=== PATIENT | male | born 1940 | race Caucasian/White ===

== ENCOUNTER → 2017-08-29 | Outpatient (CLI) | payer MEDICARE ==
[~2017-08-29] MED LIST: ALBUTEROL2 PUFFS/17 IN; ALBUTEROL2.5 MG/NEB INH; AMIODARONE200 MG PO; ASPIR-LOW81 MG PO; AUGMENTIN 875-1 EACH PO; AZITHROMYCIN250 MG PO; BISOPROLOL 5MG T5 MG PO; CHEWABLE ASPIRI81 MG PO; CILOSTAZOL100 M1 PO; CILOSTAZOL100 MG PO; CLOPIDOGREL75 MG PO; GLIPIZIDE 5MG TA5 MG PO; IPRATROPIUM 2.2.5 ML INH; LASIX20 MG PO; LIPITOR80 MG PO; LISINOPRIL 5MG T5 MG PO; LISINOPRIL2.5 MG PO; LORTAB 500 MG-71 TAB PO; MAGMTHWSH PO; MEDROL 4MG. DOSE4 MG PO; MELOXICAM15 MG PO; METFORMIN1000 MG PO; MICRO-K 10 MEQ10 MEQ PO; MOBIC15 MG PO; OMNICEF 300 MG300 MG PO; PREDNISONE 20MG20 MG PO; SINGULAIR10 MG PO; TAMSULOSIN HYD0.4 MG PO; ZITHROMAX Z-PA250 M2 PO
== END ==
LOC: LAB 13:24
DX: E55.9 Vitamin D deficiency, unspecified (principal); R53.83 Other fatigue; Z79.899 Other long term (current) drug therapy

== ENCOUNTER → 2017-09-12 | Outpatient (CLI) | payer MEDICARE, MEDICAID ==
--- NOTE | 2017-09-12 15:39 | RADIOLOGY REPORT PS360 ---
HUMERUS-RT HISTORY: RT SHOULDER PAIN ORDERING PHYSICIAN: Trey Aguayo MD PATIENT AGE: 76 years COMPARISON: None FINDINGS: There are severe osteoarthritic changes of the acromioclavicular joint with subacromial stenosis. No fracture or dislocation. IMPRESSION: Osteoarthritis, no acute finding
--- NOTE | 2017-09-12 15:40 | RADIOLOGY REPORT PS360 ---
[id number] VIEWS HISTORY: RT SHOULDER PAIN ORDERING PHYSICIAN: Trey Aguayo MD PATIENT AGE: 76 years COMPARISON: None FINDINGS: Osteoarthritis of the acromioclavicular joint. Subacromial stenosis with some cortical irregularity of the greater tuberosity which may be seen with chronic rotator cuff disease. No acute fracture or dislocation. IMPRESSION: Osteoarthritis with subacromial stenosis
== END ==
LOC: RAD 14:35
DX: S46.901D Unspecified injury of unspecified muscle, fascia and tendon at shoulder and upper arm level, right arm, subsequent encounter (principal)

== ENCOUNTER → 2017-10-06 | Outpatient (CLI) | payer MEDICARE ==
--- NOTE | 2017-10-06 14:22 | RADIOLOGY REPORT PS360 ---
KNEE-4 OR 5 VIEWS-LT HISTORY: BILAT KNEE PAIN ORDERING PHYSICIAN: CAMILO MENDIOLA MD PATIENT AGE: 77 years COMPARISON: None FINDINGS: Weightbearing views are performed. There are severe osteoarthritic changes of the lateral compartment with loss of joint space and mild lateral subluxation of the tibia by approximately 6 mm. Chondrocalcinosis involving the medial compartment with moderate osteoarthritic change of the medial compartment and patellofemoral joint. There is diffuse vascular calcification. No acute fracture or dislocation. IMPRESSION: Severe osteoarthritis of the lateral compartment and moderate osteoarthritis of the medial compartment and patellofemoral joint
--- NOTE | 2017-10-07 09:16 | RADIOLOGY REPORT PS360 ---
KNEE-4 OR 5 VIEWS-RT HISTORY: BILAT KNEE PAIN ORDERING PHYSICIAN: CAMILO MENDIOLA MD PATIENT AGE: 77 years COMPARISON: None FINDINGS: Weightbearing views are performed of the right knee including a patellar view. There are severe osteoarthritic changes of the lateral compartment with mild valgus angulation of the tibia and mild lateral tibial subluxation of 6 mm. No acute fracture or dislocation. There is no fracture the proximal shaft of the fibula. There are diffuse vascular calcification. There is mild lateral subluxation of the patella. 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
== END ==
LOC: RAD 12:46
DX: M25.561 Pain in right knee (principal); M25.562 Pain in left knee